=== PATIENT | female | born 1975 | race Caucasian/White ===

== ENCOUNTER 2025-08-18 09:29 | Observation (INO) ==
[2025-08-18 10:22] LABS: IMMATURE GRANULOCYTE # (AUTO) 0.0 (0.0-1.0); IMMATURE GRANULOCYTE % (AUTO) 0.3 % (0.0-5.0); RDW COEFFICIENT OF VARIATION 13.6 % (11.6-14.8)
[2025-08-18 10:35] LABS: CREATININE 0.92 mg/dL (0.60-1.30)
--- NOTE | 2025-08-18 10:38 | DI ---
EXAM: CHEST RADIOGRAPH TECHNIQUE: Single frontal chest radiograph. HISTORY: Chest pain and shortness of breath. COMPARISON: 03/09/2025 FINDINGS: Calcified granuloma of the left base, with calcified left hilar nodes, again noted. No pulmonary infiltrate is identified. No pleural effusion or pneumothorax is seen. Heart size is normal. Coronary artery stenting, again noted. No acute displaced rib fractures are identified. Old, healed fracture of the left 7th rib posteriorly, again noted. IMPRESSION: 1. No acute findings in the chest.
[2025-08-18 10:45] LABS: BLOOD ALCOHOL < 10.0 mg/dL (0.0-50.0)
[2025-08-18 10:46] LABS: LEUKOCYTE ESTERASE ,URINE Negative (NEGATIVE); URINE, BLOOD 1+ (NEGATIVE)
[2025-08-18 10:49] LABS: GLUCOSE, URINE (UA) 3+ (NEGATIVE)
[2025-08-18 11:09] LABS: CANNABINOID SCREEN,URINE POSITIVE (NEGATIVE); COCAIN SCREEN,URINE NEGATIVE (NEGATIVE)
[2025-08-18 11:10] LABS: AMPHETAMINE SCREEN,URINE NEGATIVE (NEGATIVE); METHADONE URINE SCREEN NEGATIVE (NEGATIVE); METHAMPHETAMINES SCREEN,URINE NEGATIVE (NEGATIVE); OXYCODONE URINE SCREEN NEGATIVE (NEGATIVE); TRICYCLIC ANTIDEPRESSANTS URIN NEGATIVE (NEGATIVE)
[2025-08-18] MEDS: COMPAZINE IVP STA (11:21)
[2025-08-18 11:22] LABS: VBG HCO3 29.8 (22-26); VBG OXYGEN SATURATION 53.5 (60-80); VBG PCO2 54.0 (40-50); VBG PH 7.35 (7.30-7.40); VBG PO2 30.0 (36-42)
[2025-08-18] MEDS: SODIUM CHLORIDE 1,000 ML IV ONE (11:22)
[2025-08-18] MEDS: BENADRYL IVP STA (11:22)
[2025-08-18] MEDS: HUMULIN R (10ML) IVP STA (11:23)
[2025-08-18] MEDS: CALCIUM CHLORIDE 10% IVP STA (11:23)
--- NOTE | 2025-08-18 11:46 | ED.PDOC ---
General [facility] ED Provider: Dr. KENDELL MATOS DO Chief Complaint: Nausea/Vomiting Stated Complaint: 50-year-old female presents to the ER reporting nausea vomiting and onset of diarrhea this morning. She also reports lower abdominal pain for the last 2 weeks. She reports that she has had trouble taking her medications to include hypertension medications, Plavix with history of CAD and stents, as well as diabetes requiring insulin therapy. She thinks that she has had a fever over the last couple weeks but not in the last 24 to 48 hours. Denies melena or hematochezia, dysuria or hematuria. Denies chest pain shortness of breath or cough. No known sick contacts. Time Seen by Provider: 08/18/25 09:30 Information Source: Patient Nursing and Triage Documentation Reviewed and Agree: Yes Opioid Naive vs. Tolerant What is Opioid Naive?: *Opioid Naive implies the patient is not already taking opioids or not chronically receiving opioids on a daily basis. *PRN dosing is not "usually" associated with tolerance. *Patients are at higher risk of over-sedation and aspiration. What is Opioid Tolerant?: *Opioid Tolerance implies less than the expected response to an opioid. *Acquired tolerance is defined by the patient taking 60mg of oral morphine daily (or equianalgesic dose of another opioid) for 1 week or more. *Often associated with chronic pain. *May take more than usual dose to achieve desired pain control. Review of Systems Review Of Systems Constitutional: Reports No symptoms All Other Systems: Reviewed and Negative [facility] Medical History (Updated 08/18/25 @ 21:28 by SABINO LEBRON) GERD (gastroesophageal reflux disease) K21.9 - Gastro-esophageal reflux disease without esophagitis (ICD-10) HTN (hypertension) I10 - Essential (primary) hypertension (ICD-10) CAD (coronary artery disease) I25.10 - Atherosclerotic heart disease of robinson coronary artery without angina pectoris (ICD-10) Diabetes E11.9 - Type 2 diabetes mellitus without complications (ICD-10) Surgical History (Updated 08/18/25 @ 21:28 by SABINO LEBRON) H/O heart artery stent Z95.5 - Presence of coronary angioplasty implant and graft (ICD-10) Physical Exam Physical Exam Appearance: Reports Ill-appearing, No pain distress and Well-nourished Ill-appearing: Mild Eyes: Reports JOSE ELIAS, EOMI and Conjunctiva clear ENT: Reports Nose normal and Oropharynx normal Neck: Supple Respiratory: Reports Airway patent, Breath sounds clear and Respirations nonlabored Cardiovascular: Reports RRR and Pulses normal GI/: Reports Soft, Nontender and Other (Negative Tinsley, McBurney, Rovsing, rebound or peritoneal signs) Musculoskeletal: Reports Normal strength and ROM intact Skin: Reports Warm, Dry and Normal color Neurological: Reports Sensation intact, Motor intact, Alert and Oriented Psychiatric: Reports Affect appropriate and Mood appropriate Interpretation EKG Interpretation EKG Interpretation By: ED Physician Time of EKG #1: 10:11 Rate: Normal (84) Rhythm: Sinus Ectopy: None [place]: NL ST Segment: Normal Interpretation: Q waves inferiorly, otherwise no acute ischemia Radiology Interpretation Radiology Interpretation By: Radiologist Radiology Results: No acute changes Exam Interpreted: Portable CXR Re-Evaluation Re-Evaluation Additional Comments: 50-year-old female presents to the ER reporting nausea vomiting and onset of diarrhea progressively worsening over the last 2 weeks. Subjective fever during that timeframe but not in the last 2 days. She is afebrile nontoxic doubt systemic infection such as sepsis. History of diabetes concern for DKA. She does have a subsequent blood sugar over 700 as well as potassium over 6. EKG does not demonstrate changes consistent with hyperkalemia, however given the level of increase, insulin, fluid bolus and calcium given. Given the glucose of over 700, D50 not given in this regard and insulin was given for both the hyperkalemia as well as hyperglycemia. Anion gap just over 20 but venous blood gas does not demonstrate acidosis. This would not technically be DKA although very close. This patient will likely require hospitalization. Will review viral swabs in addition to laboratory workup. No other signs of infection such as UTI, pneumonia, intra-abdominal or cutaneous etiologies. Will discussed with hospitalist service after reassessment after treatment Physician Progress Note Physician Progress Note: All EKGs and plain film imaging independently reviewed and interpreted by me unless stated otherwise. CTs interpreted by radiology unless otherwise stated. All pediatric patients are accompanied by parent or legal guardian as primary historian and/or validate patient report unless otherwise stated. Course Course 08/18/25 10:13 08/18/25 12:35 Orders, Labs, Meds: Lab Review 08/18/25 08/18/25 08/18/25 10:13 10:15 10:48 WBC 8.69 RBC 4.57 Hgb 13.1 Hct 41.3 MCV 90.4 MCH 28.7 MCHC 31.7 L RDW Coeff of Osvaldo 13.6 Plt Count 461 H Immature Gran % (Auto) 0.3 Neut % (Auto) 87.8 H Lymph % (Auto) 9.0 L Bucks % (Auto) 2.1 Eos % (Auto) 0.2 Baso % (Auto) 0.6 Neut # (Auto) 7.6 H Lymph # (Auto) 0.8 Bucks # (Auto) 0.2 L Eos # (Auto) 0.0 Baso # (Auto) 0.1 Immature Gran # (Auto) 0.0 VBG pH VBG pCO2 VBG pO2 VBG HCO3 VBG O2 Saturation Sodium 124.4 L Potassium 6.18 H* Chloride 85.4 L Carbon Dioxide 24.5 Anion Gap 20.68 BUN 24.7 H Creatinine 0.92 Estimated GFR (MDRD) 64.00 BUN/Creatinine Ratio 26.84 Glucose 732.6 H* Lactic Acid 1.37 Calcium 9.24 Magnesium 1.87 Total Bilirubin 0.66 AST 32.3 ALT 40.3 H Alkaline Phosphatase 200.4 H Troponin I < 0.012 Total Protein 7.91 Albumin 4.51 Globulin 3.40 Albumin/Globulin Ratio 1.32 Plasma/Serum Alcohol < 10.0 Acetone, Qual None Influ A Molecular Assay Influ B Molecular Assay RSV Antigen SARS CoV-2 RNA Rapid JAMIL 08/18/25 08/18/25 08/18/25 11:12 11:45 12:35 WBC RBC Hgb Hct MCV MCH MCHC RDW Coeff of Osvaldo Plt Count Immature Gran % (Auto) Neut % (Auto) Lymph % (Auto) Bucks % (Auto) Eos % (Auto) Baso % (Auto) Neut # (Auto) Lymph # (Auto) Bucks # (Auto) Eos # (Auto) Baso # (Auto) Immature Gran # (Auto) VBG pH 7.35 VBG pCO2 54 H VBG pO2 30 L VBG HCO3 29.8 H VBG O2 Saturation 53.5 L Sodium 127.1 L Potassium 4.09 D Chloride 90.8 L Carbon Dioxide 27.1 Anion Gap 13.29 BUN 23.4 H Creatinine 0.80 Estimated GFR (MDRD) 76.00 BUN/Creatinine Ratio 29.25 Glucose 492.7 H D Lactic Acid Calcium 9.92 Magnesium Total Bilirubin AST ALT Alkaline Phosphatase Troponin I Total Protein Albumin Globulin Albumin/Globulin Ratio Plasma/Serum Alcohol Acetone, Qual Influ A Molecular Assay Negative by naat Influ B Molecular Assay Negative by naat RSV Antigen Negative by naat SARS CoV-2 RNA Rapid JAMIL Negative Orders Category Date Time Status ADMIT OBSERVATION [PLACE PATIENT OBSERVATION] .TO ADMISSION 08/18/25 13:18 Active MEDSURG (MONITORED BED) EKG-(ED & IP/OBS ONLY) Stat CARDIO 08/18/25 10:05 Completed NPO REMINDER: IMAGING ONCE CARE 08/18/25 10:42 Completed TELEMETRY MONITORING TELE CARE 08/18/25 13:18 Active IV [ED IV/MEDIPORT/POWERPORT] .ONCE EMERGENCY 08/18/25 10:05 Active ACETONE, QUALITATIVE Stat LAB 08/18/25 10:48 Completed ALCOHOL LEVEL [BLOOD ALCOHOL] Stat LAB 08/18/25 10:15 Completed BMP [BASIC METABOLIC PANEL] Stat LAB 08/18/25 12:35 Completed CBC W/ AUTO DIFF Stat LAB 08/18/25 10:13 Completed CMP [COMPREHENSIVE METABOLIC PANEL] Stat LAB 08/18/25 10:15 Completed COVID [SARS COV-2 RNA RAPID JAMIL] Stat LAB 08/18/25 11:45 Completed DRUG SCREEN (RAPID FOR ED) [DRUG SCREEN, URINE, RAPID] LAB 08/18/25 Completed Stat FLU A & B MOLECULAR [FLU A/B MOLECULAR] Stat LAB 08/18/25 11:45 Completed LACTIC ACID Stat LAB 08/18/25 10:15 Completed MAGNESIUM Stat LAB 08/18/25 10:15 Completed RSV Stat LAB 08/18/25 11:45 Completed TROPONIN I Stat LAB 08/18/25 10:15 Completed URINALYSIS C & S IF INDICATED Stat LAB 08/18/25 Completed VENOUS BLOOD GAS Stat LAB 08/18/25 11:12 Completed 0.9 % Sodium Chloride [Saline Flush] Meds 08/18/25 10:05 Active 1 syr IVF PRN PRN Calcium Chloride Syringe [Calcium Chloride 10%] Meds 08/18/25 10:47 Discontinued 1,000 mg IVP ONCE STA Diphenhydramine Inj [Benadryl] Meds 08/18/25 10:05 Discontinued 25 mg IVP ONCE STA Insulin Regular, Human [Humulin R (10Ml)] Meds 08/18/25 10:46 Discontinued 10 unit IVP ONCE STA Iohexol [Omnipaque 350 mg/ml 100Ml] Meds 08/18/25 12:16 Discontinued 100 ml IVP ONCE ONE Prochlorperazine Edisylate [Compazine] Meds 08/18/25 10:05 Discontinued 10 mg IVP ONCE STA Sodium Chloride 0.9% [Sodium Chloride] 1,000 ml Meds 08/18/25 10:05 Discontinued IV BOLUS CHEST, 1V AP ONLY Stat RADS 08/18/25 10:[address] ABDOMEN/PELVIS W CONTRAST Stat RADS 08/18/25 10:42 Completed Medications Generic Name Dose Route Start Last Admin Trade Name Freq PRN Reason Stop Dose Admin Acetaminophen 650 mg 08/18/25 13:49 Acetaminophen 325 Mg Tablet PO Q4H PRN Mild Pain Aspirin 81 mg 08/19/25 09:00 Aspirin 81 Mg Tablet. PO DAILY [facility] Atorvastatin Calcium 40 mg 08/19/25 09:00 Atorvastatin Calcium 20 Mg Tablet PO DAILY [facility] Carvedilol 3.125 mg 08/18/25 21:00 08/18/25 21:41 Carvedilol 3.125 Mg Tablet PO 3.125 mg 2XD [facility] Administration Famotidine 20 mg 08/18/25 18:35 08/18/25 21:40 Famotidine 20 Mg Tablet PO 20 mg BIDAC2 [facility] Administration Ferrous Sulfate 324 mg 08/19/25 09:00 Ferrous Sulfate 324 Mg Tablet. PO DAILY [facility] Gabapentin 100 mg 08/18/25 21:00 08/18/25 21:40 Gabapentin 100 Mg Capsule PO 100 mg TID [facility] Administration Hydroxyzine HCl 25 mg 08/18/25 16:29 Hydroxyzine Hcl 25 Mg Tablet PO Q8H PRN Anxiety Sodium Chloride 1,000 mls @ 50 mls/hr 08/18/25 21:19 08/18/25 22:00 Sodium Chloride IV Not Given .Q20H [facility] Insulin Glargine 11 unit 08/19/25 09:00 Insulin Glargine,Hum.Rec.Anlog 100 Units/Ml SUBCUT QAM [facility] Insulin Glargine 7 unit 08/18/25 17:00 08/18/25 17:32 Insulin Glargine,Hum.Rec.Anlog 100 Units/Ml SUBCUT 7 unit QPM [facility] Administration Insulin Human Regular 0 unit 08/18/25 13:51 08/18/25 21:37 Insulin Regular, Human 100 Unit/Ml (10ml) Vial SUBCUT 10 unit PRN PRN Administration Hyperglycemia Protocol Losartan Potassium 12.5 mg 08/19/25 09:00 Losartan Potassium 25 Mg Tablet PO DAILY [facility] Metoclopramide HCl 5 mg 08/18/25 13:49 Metoclopramide Hcl 10 Mg/2 Ml IVP Q6H PRN Nausea / Vomiting Nitroglycerin 0.4 mg 08/18/25 16:29 Nitroglycerin 0.4 Mg Tab.Subl SL Q5MIN X 3 DOSES PRN Chest Pain Ondansetron HCl 4 mg 08/18/25 13:49 Ondansetron Hcl/Pf 4 Mg/2 Ml Sdv IVP Q6H PRN Nausea / Vomiting Paroxetine HCl 40 mg 08/19/25 09:00 Paroxetine Hcl 20 Mg Tablet PO DAILY [facility] Quetiapine Fumarate 50 mg 08/18/25 21:00 08/18/25 21:40 Quetiapine Fumarate 25 Mg Tablet PO 50 mg BEDTIME [facility] Administration Sodium Chloride 1 syr 08/18/25 10:05 0.9% Sodium Chloride 10 Ml Disp.Syrin IVF PRN PRN To flush IV Discontinued Medications Generic Name Dose Route Start Last Admin Trade Name Freq PRN Reason Stop Dose Admin Calcium Chloride 1,000 mg 08/18/25 10:47 08/18/25 11:23 Calcium Chloride 1000 Mg/10 Ml Syringe IVP 08/18/25 10:48 1,000 mg ONCE STA Administration Diphenhydramine HCl 25 mg 08/18/25 10:05 08/18/25 11:22 Diphenhydramine Inj 50 Mg/Ml Vial IVP 08/18/25 10:06 25 mg ONCE STA Administration Sodium Chloride 1,000 mls @ 1,000 mls/hr 08/18/25 10:05 08/18/25 22:01 Sodium Chloride IV 08/18/25 11:04 Infused BOLUS ONE Infusion Sodium Chloride 1,000 mls @ 125 mls/hr 08/18/25 14:00 08/18/25 15:09 Sodium Chloride IV 125 mls/hr .Q8H [facility] Administration Insulin Human Regular 10 unit 08/18/25 10:46 08/18/25 11:23 Insulin Regular, Human 100 Unit/Ml (10ml) Vial IVP 08/18/25 10:47 10 unit ONCE STA Administration Iohexol 100 ml 08/18/25 12:16 08/18/25 12:17 Iohexol 350 Mg/Ml 100ml IVP 08/18/25 12:17 100 ml ONCE ONE Administration Prochlorperazine Edisylate 10 mg 08/18/25 10:05 08/18/25 11:21 Prochlorperazine Edisylate 10 Mg/2 Ml Sdv IVP 08/18/25 10:06 10 mg ONCE STA Administration Vital Signs: Temp Pulse Resp BP Pulse Ox 08/18/25 09:57 97.4 F L 86 18 163/90 H 100 Discharge Plan Discharge Patient Disposition: PLACED OBSERVATION Discharge Problem: Acute hyperglycemia, Acute hyperkalemia, Intractable vomiting, Abdominal pain, Diabetes Did you review [place] [facility] TERRAPIN for ALL controlled substances?: Not Applicable ED Provider: KENDELL MATOS Condition: Stable
[2025-08-18 12:12] LABS: MOLECULAR FLU A NEGATIVE BY NAAT (NEGATIVE); MOLECULAR FLU B NEGATIVE BY NAAT (NEGATIVE); RSV MOLECULAR NEGATIVE BY NAAT (NEGATIVE); SARS COV-2 RNA RAPID NAAT NEGATIVE (NEGATIVE)
[2025-08-18] MEDS: OMNIPAQUE 350 MG/ML 100ML IVP ONE (12:17)
[2025-08-18 12:50] LABS: CREATININE 0.8 mg/dL (0.60-1.30)
--- NOTE | 2025-08-18 13:08 | CT ---
EXAM: CT ABDOMEN AND PELVIS HISTORY: Persistent lower abdominal pain and vomiting TECHNIQUE: CT abdomen and pelvis with intravenous contrast. Images were reconstructed using 5 mm section thickness. Reformations were prepared. COMPARISON: None FINDINGS: Liver is unremarkable. There is a gallstone within the gallbladder. The gallbladder is mildly distended without obvious inflammation. Common bile duct diameter is normal. The pancreas is normal other than a small 4.4 mm parenchymal cystic nodule mid body, axial image 28. Spleen and adrenal glands are within normal limits. There are multiple high density foci within the kidneys probably representing a combination of excreted intravenous contrast agent and vascular calcifications. Cannot exclude nephrolithiasis. No hydronephrosis is seen. Urinary bladder is mildly distended, otherwise unremarkable. Vascular calcifications of the aorta and iliac vessels are present. Unremarkable stomach. No definite appendix is seen. There is excess fecal retention in the transverse colon. The colon was otherwise unremarkable. The small bowel has diffuse mild fluid distension. The uterus is present. Trace pelvic ascites is noted. There is no free air. No abdominal wall hernia. Bones are within normal limits. Lung bases are free of acute infiltrate. - - - - - IMPRESSION: 1. There is a gallstone within the gallbladder. The gallbladder is mildly distended without obvious inflammation. Common bile duct diameter is normal. 2. The pancreas is normal other than a small 4.4 mm parenchymal cystic nodule mid body, axial image 28. This can be correlated with follow-up MRI. 3. There are multiple high density foci within the kidneys probably representing a combination of excreted intravenous contrast agent and vascular calcifications. Cannot exclude nephrolithiasis. No hydronephrosis is seen. Urinary bladder is mildly distended, otherwise unremarkable. 4. Unremarkable stomach. There is excess fecal retention in the transverse colon. The colon was otherwise unremarkable. The small bowel has diffuse mild fluid distension. This may represent a degree of mild enteritis or ileus. Trace pelvic ascites is noted. - - - - - All CT scans are performed using dose optimization techniques as appropriate to the performed exam and include at least one of the following: Automated exposure control, adjustment of the mA and/or kV according to size, and the use of iterative reconstruction technique.
[2025-08-18] MEDS ORDERED: REGLAN IVP PRN (13:49)
[2025-08-18] MEDS ORDERED: ZOFRAN SDV IVP PRN (13:49)
[2025-08-18] MEDS: SODIUM CHLORIDE 1,000 ML IV SCH ×2 (15:09→22:00)
[2025-08-18 15:42] VITALS: BMI 16.7
[2025-08-18] MEDS ORDERED: NITROSTAT SL PRN (16:29)
[2025-08-18] MEDS: HUMULIN R (10ML) SUBCUT PRN (17:31)
[2025-08-18] MEDS: LANTUS SUBCUT SCH (17:32)
--- NOTE | 2025-08-18 21:21 | PCM ---
Date of Service Date Seen by Provider: 08/18/25 Time Seen by Provider: 13:30 Admit Day/Time Admission Date: 08/18/25 Admission Time: 13:10 Reason for Admission Chief Complaint: HYPERCLYCEMIA,KYPERKALEMIA,INTRACTABLE VOMITING Hospital Provider Hospital Provider: SABINO LEBRON, [facility] History of Present Illness History of Present Illness: 50 yo female with pmh of T1DM, CAD, HTN, and GERD presented to the ER with 2 week duration of intermittent nausea, vomiting, and abdominal pain. Patient states they have been in the process of moving from the [facility] and feels this may be due to the stress. Has been unable to eat or drink much mostly the last 24-48 hours with diarrhea present as well. Initially blood sugars were running as low as 40s and then the last few days they have been 500s or higher. She ran out of her dexcom patches today and has not been able to appropriately monitor her sugar. She does not have a PCP at this time due to moving. Denies any fever, chills, chest pain, sob, or other symptoms. At this time, nausea has subsided and is hopeful to try something to eat soon. Blood glucose initially was >700, K of 6, PCO2 on venous ABG 54, pH normal, and anion gap was 20. Acetone negative. She was given 10 units of regular insulin and glucose improved to 400s. BMP rechecked and hyperkalemia resolved, but sodium remains in upper 120s. Anion gap down to 13. Admitted to Med/Surg Observation. Case Discussed With Case Discussed With: Patient's case was discussed with the ER Physicians, Dr. Dugan. [facility] Medical History (Updated 08/18/25 @ 21:28 by SABINO LEBRON) GERD (gastroesophageal reflux disease) K21.9 - Gastro-esophageal reflux disease without esophagitis (ICD-10) HTN (hypertension) I10 - Essential (primary) hypertension (ICD-10) CAD (coronary artery disease) I25.10 - Atherosclerotic heart disease of [place] coronary artery without angina pectoris (ICD-10) Diabetes E11.9 - Type 2 diabetes mellitus without complications (ICD-10) Surgical History (Updated 08/18/25 @ 21:28 by SABINO LEBRON) H/O heart artery stent Z95.5 - Presence of coronary angioplasty implant and graft (ICD-10) Allergies Allergies Allergy/AdvReac Type Severity Reaction Status Date / Time No Known Allergies Allergy Unverified 08/18/25 09:57 Current Medications Home Medications Acetaminophen (Acetaminophen 325 Mg Tablet) 650 mg PO Q4H PRN PRN Reason: Mild Pain Aspirin (Aspirin 81 Mg Tablet.) 81 mg PO DAILY [facility] Atorvastatin Calcium (Atorvastatin Calcium 20 Mg Tablet) 40 mg PO DAILY [facility] Carvedilol (Carvedilol 3.125 Mg Tablet) 3.125 mg PO 2XD [facility] Famotidine (Famotidine 20 Mg Tablet) 20 mg PO BIDAC2 [facility] Ferrous Sulfate (Ferrous Sulfate 324 Mg Tablet.) 324 mg PO DAILY [facility] Gabapentin (Gabapentin 100 Mg Capsule) 100 mg PO TID [facility] Hydroxyzine HCl (Hydroxyzine Hcl 25 Mg Tablet) 25 mg PO Q8H PRN PRN Reason: Anxiety Sodium Chloride (Sodium Chloride) 1,000 mls @ 50 mls/hr IV .Q20H [facility] Insulin Glargine (Insulin Glargine,Hum.Rec.Anlog 100 Units/Ml) 11 unit SUBCUT QAM [facility] Insulin Glargine (Insulin Glargine,Hum.Rec.Anlog 100 Units/Ml) 7 unit SUBCUT QPM [facility] Last Admin: 08/18/25 17:32 Dose: 7 unit Insulin Human Regular (Insulin Regular, Human 100 Unit/Ml (10ml) Vial) 0 unit SUBCUT PRN PRN; Protocol PRN Reason: Hyperglycemia Last Admin: 08/18/25 17:31 Dose: 12 unit Losartan Potassium (Losartan Potassium 25 Mg Tablet) 12.5 mg PO DAILY [facility] Metoclopramide HCl (Metoclopramide Hcl 10 Mg/2 Ml) 5 mg IVP Q6H PRN PRN Reason: Nausea / Vomiting Nitroglycerin (Nitroglycerin 0.4 Mg Tab.Subl) 0.4 mg SL Q5MIN X 3 DOSES PRN PRN Reason: Chest Pain Ondansetron HCl (Ondansetron Hcl/Pf 4 Mg/2 Ml Sdv) 4 mg IVP Q6H PRN PRN Reason: Nausea / Vomiting Paroxetine HCl (Paroxetine Hcl 20 Mg Tablet) 40 mg PO DAILY [facility] Quetiapine Fumarate (Quetiapine Fumarate 25 Mg Tablet) 50 mg PO BEDTIME [facility] Sodium Chloride (0.9% Sodium Chloride 10 Ml Disp.Syrin) 1 syr IVF PRN PRN PRN Reason: To flush IV aspirin 81 mg tablet 81 mg PO DAILY 03/09/25 [History Confirmed 08/18/25] atorvastatin 40 mg tablet 40 mg PO DAILY 03/09/25 [History Confirmed 08/18/25] famotidine 20 mg tablet (Acid Controller) 20 mg PO DAILY 03/09/25 [History Confirmed 08/18/25] ferrous sulfate 325 mg (65 mg iron) tablet (Feosol) 325 mg PO DAILY 03/09/25 [History Confirmed 08/18/25] gabapentin 100 mg capsule 100 mg PO TID 03/09/25 [History Confirmed 08/18/25] hydroxyzine HCl 25 mg tablet 25 mg PO Q8H PRN anxiety 03/09/25 [History Confirmed 08/18/25] insulin glargine 100 unit/mL (3 mL) subcutaneous pen (Lantus Solostar U-100 Insulin) 11 unit subcut QAM 03/09/25 [History Confirmed 08/18/25] insulin lispro 100 unit/mL subcutaneous pen (Humalog KwikPen (U-100) Insulin) 5 unit subcut [id number] 03/09/25 [History Confirmed 08/18/25] insulin lispro 100 unit/mL subcutaneous pen (Humalog KwikPen (U-100) Insulin) 7 unit subcut QACLUNCH 03/09/25 [History Confirmed 08/18/25] paroxetine HCl 40 mg tablet 40 mg PO DAILY 03/09/25 [History Confirmed 08/18/25] quetiapine 50 mg tablet 50 mg PO BEDTIME 03/09/25 [History Confirmed 08/18/25] carvedilol 3.125 mg tablet 3.125 mg PO 2XD 08/18/25 [History Confirmed 08/18/25] diclofenac sodium 1 % topical gel (Arthritis Pain (diclofenac)) 2 g topical .QID PRN 08/18/25 [History Confirmed 08/18/25] fluticasone propionate 50 mcg/actuation nasal spray,suspension (Flonase Allergy Relief) 2 spray intranasal DAILY PRN allergy symptoms 08/18/25 [History Confirmed 08/18/25] insulin glargine 100 unit/mL (3 mL) subcutaneous pen (Lantus Solostar U-100 Insulin) 7 unit subcut QPM 08/18/25 [History Confirmed 08/18/25] lidocaine 4 % topical patch (Lidocare) 1 patch topical .daily prn PRN pain 08/18/25 [History Confirmed 08/18/25] losartan 25 mg tablet 12.5 mg PO DAILY 08/18/25 [History Confirmed 08/18/25] nitroglycerin 0.4 mg sublingual tablet 0.4 mg sublingual Q5-15M PRN chest pain 08/18/25 [History Confirmed 08/18/25] Opioid Naive vs. Tolerant Does Patient Take Opioids?: No Is Patient Opioid Naive?: Yes What is Opioid Naive?: *Opioid Naive implies the patient is not already taking opioids or not chronically receiving opioids on a daily basis. *PRN dosing is not "usually" associated with tolerance. *Patients are at higher risk of over-sedation and aspiration. Is Patient Opioid Tolerant?: No What is Opioid Tolerant?: *Opioid Tolerance implies less than the expected response to an opioid. *Acquired tolerance is defined by the patient taking 60mg of oral morphine daily (or equianalgesic dose of another opioid) for 1 week or more. *Often associated with chronic pain. *May take more than usual dose to achieve desired pain control. Review of Systems Constitutional: Reports Chills, Weakness and Sweats Head: Reports Normocephalic Eyes: Reports No symptoms Ears: Reports No symptoms Nose: Reports No symptoms Mouth: Reports No symptoms Throat: Reports No symptoms Cardiovascular: Reports No symptoms Respiratory: Reports No symptoms Gastrointestinal: Reports Nausea, Vomiting and Diarrhea Genitourinary: Reports No Symptoms Musculoskeletal: Reports No symptoms Endocrine: Reports No symptoms Hematology: Reports No symptoms Immunology: Reports No symptoms Neurological: Reports No symptoms Psychiatric: Reports No symptoms Physical examination Most Recent Vital Signs: Most Recent Vital Signs Temperature 97.9 F 08/18/25 18:00 Temperature Source Temporal Artery Scan 08/18/25 18:00 Temperature Source Temporal Artery Scan 08/18/25 09:57 Pulse Rate 117 H 08/18/25 18:00 Respiratory Rate 24 H 08/18/25 18:00 Blood Pressure 101/56 L 08/18/25 18:00 Blood Pressure Mean 71 08/18/25 18:00 Blood Pressure Left Arm 140/71 08/18/25 14:40 Blood Pressure Location Right Arm 08/18/25 18:00 Blood Pressure Position Supine 08/18/25 14:40 O2 Sat by Pulse Oximetry 97 08/18/25 18:00 Oxygen Delivery Method Room Air 08/18/25 21:00 Height 5 ft 4 in 08/18/25 14:40 Weight 44.4 kg 08/18/25 14:40 Telemetry Type Remote Telemetry 08/18/25 19:00 Telemetry Monitoring Continues 08/18/25 19:00 Telemetry Heart Rate 99 08/18/25 19:00 EKG DE Interval 0.15 08/18/25 19:00 EKG QRS Interval 0.06 08/18/25 19:00 Telemetry Strip Reading nsr [email or web address] rn 08/18/25 19:00 Appearance: Positive No Apparent Distress, Alert and Oriented x3, Ill-Appearing and Thin Skin: Positive Warm and Good Turgor HEENT: Positive Normocephalic and PERRLA Neck: Positive Supple and Midline Trachea Chest/Lungs: Positive Symmetrical With Equal Breath Sounds, Clear to Ausc ultation Bilaterally and Good Air Movement all 4 Lung [place] Heart: Positive RRR and Pulses Normal GI/: Positive Soft, Nontender, Bowel Sounds Normal and No Distention Musculoskeletal: Positive Not Examined Extremities: Positive Intact Peripheral Pulses, Stable Joints Without Laxity and Good ROM in All Joints Neurological: Positive Sensation Intact, Motor intact, Reflexes Intact, Alert, Oriented and Muscle Strength 5/5 in Upper and Lower Extremities Bilaterally Labs This Visit Labs This Visit: Labs This Visit 08/18/25 08/18/25 08/18/25 10:13 10:15 10:48 WBC 8.69 RBC 4.57 Hgb 13.1 Hct 41.3 MCV 90.4 MCH 28.7 MCHC 31.7 L RDW Coeff of [place] 13.6 Plt Count 461 H Immature Gran % (Auto) 0.3 Neut % (Auto) 87.8 H Lymph % (Auto) 9.0 L [place] % (Auto) 2.1 Eos % (Auto) 0.2 Baso % (Auto) 0.6 Neut # (Auto) 7.6 H Lymph # (Auto) 0.8 [place] # (Auto) 0.2 L Eos # (Auto) 0.0 Baso # (Auto) 0.1 Immature Gran # (Auto) 0.0 VBG pH VBG pCO2 VBG pO2 VBG HCO3 VBG O2 Saturation Sodium 124.4 L Potassium 6.18 H* Chloride 85.4 L Carbon Dioxide 24.5 Anion Gap 20.68 BUN 24.7 H Creatinine 0.92 Estimated GFR (MDRD) 64.00 BUN/Creatinine Ratio 26.84 Glucose 732.6 H* Lactic Acid 1.37 Calcium 9.24 Magnesium 1.87 Total Bilirubin 0.66 AST 32.3 ALT 40.3 H Alkaline Phosphatase 200.4 H Troponin I < 0.012 Total Protein 7.91 Albumin 4.51 Globulin 3.40 Albumin/Globulin Ratio 1.32 Urine Color Urine Clarity Urine pH Ur Specific [place] Urine Protein Urine Glucose (UA) Urine Ketones Urine Blood Urine Nitrite Urine Bilirubin Urine Urobilinogen Ur Leukocyte Esterase Urine Microscopic RBC Ur Squamous Epith Cells Urine Bacteria Urine Opiates Screen Ur Oxycodone Screen Urine Methadone Screen Ur Barbiturates Screen U Tricyclic Antidepress Ur Phencyclidine Scrn Ur Amphetamine Screen U Methamphetamines Scrn U Benzodiazepines Scrn Urine Cocaine Screen U Cannabinoids Screen Plasma/Serum Alcohol < 10.0 Acetone, Qual None Influ A Molecular Assay Influ B Molecular Assay RSV Antigen SARS CoV-2 RNA Rapid JAMIL 08/18/25 08/18/25 08/18/25 11:12 11:45 12:35 WBC RBC Hgb Hct MCV MCH MCHC RDW Coeff of [place] Plt Count Immature Gran % (Auto) Neut % (Auto) Lymph % (Auto) [place] % (Auto) Eos % (Auto) Baso % (Auto) Neut # (Auto) Lymph # (Auto) [place] # (Auto) Eos # (Auto) Baso # (Auto) Immature Gran # (Auto) VBG pH 7.35 VBG pCO2 54 H VBG pO2 30 L VBG HCO3 29.8 H VBG O2 Saturation 53.5 L Sodium 127.1 L Potassium 4.09 D Chloride 90.8 L Carbon Dioxide 27.1 Anion Gap 13.29 BUN 23.4 H Creatinine 0.80 Estimated GFR (MDRD) 76.00 BUN/Creatinine Ratio 29.25 Glucose 492.7 H D Lactic Acid Calcium 9.92 Magnesium Total Bilirubin AST ALT Alkaline Phosphatase Troponin I Total Protein Albumin Globulin Albumin/Globulin Ratio Urine Color Urine Clarity Urine pH Ur Specific [place] Urine Protein Urine Glucose (UA) Urine Ketones Urine Blood Urine Nitrite Urine Bilirubin Urine Urobilinogen Ur Leukocyte Esterase Urine Microscopic RBC Ur Squamous Epith Cells Urine Bacteria Urine Opiates Screen Ur Oxycodone Screen Urine Methadone Screen Ur Barbiturates Screen U Tricyclic Antidepress Ur Phencyclidine Scrn Ur Amphetamine Screen U Methamphetamines Scrn U Benzodiazepines Scrn Urine Cocaine Screen U Cannabinoids Screen Plasma/Serum Alcohol Acetone, Qual Influ A Molecular Assay Negative by naat Influ B Molecular Assay Negative by naat RSV Antigen Negative by naat SARS CoV-2 RNA Rapid JAMIL Negative 08/18/25 Unknown WBC RBC Hgb Hct MCV MCH MCHC RDW Coeff of [place] Plt Count Immature Gran % (Auto) Neut % (Auto) Lymph % (Auto) [place] % (Auto) Eos % (Auto) Baso % (Auto) Neut # (Auto) Lymph # (Auto) [place] # (Auto) Eos # (Auto) Baso # (Auto) Immature Gran # (Auto) VBG pH VBG pCO2 VBG pO2 VBG HCO3 VBG O2 Saturation Sodium Potassium Chloride Carbon Dioxide Anion Gap BUN Creatinine Estimated GFR (MDRD) BUN/Creatinine Ratio Glucose Lactic Acid Calcium Magnesium Total Bilirubin AST ALT Alkaline Phosphatase Troponin I Total Protein Albumin Globulin Albumin/Globulin Ratio Urine Color Light Urine Clarity Clear Urine pH 5.5 Ur Specific [place] 1.010 Urine Protein Negative Urine Glucose (UA) 3+ H Urine Ketones 3+ H Urine Blood 1+ H Urine Nitrite Negative Urine Bilirubin Negative Urine Urobilinogen 0.2 Ur Leukocyte Esterase Negative Urine Microscopic RBC 10-20 Ur Squamous Epith Cells 5-10 Urine Bacteria Trace Urine Opiates Screen Negative Ur Oxycodone Screen Negative Urine Methadone Screen Negative Ur Barbiturates Screen Negative U Tricyclic Antidepress Negative Ur Phencyclidine Scrn Negative Ur Amphetamine Screen Negative U Methamphetamines Scrn Negative U Benzodiazepines Scrn Negative Urine Cocaine Screen Negative U Cannabinoids Screen Positive H Plasma/Serum Alcohol Acetone, Qual Influ A Molecular Assay Influ B Molecular Assay RSV Antigen SARS CoV-2 RNA Rapid JAMIL Imaging Imaging: EXAM: CHEST RADIOGRAPH TECHNIQUE: Single frontal chest radiograph. HISTORY: Chest pain and shortness of breath. COMPARISON: 03/09/2025 FINDINGS: Calcified granuloma of the left base, with calcified left hilar nodes, again noted. No pulmonary infiltrate is identified. No pleural effusion or pneumothorax is seen. Heart size is normal. Coronary artery stenting, again noted. No acute displaced rib fractures are identified. Old, healed fracture of the left 7th rib posteriorly, again noted. IMPRESSION: 1. No acute findings in the chest. EXAM: CT ABDOMEN AND PELVIS HISTORY: Persistent lower abdominal pain and vomiting TECHNIQUE: CT abdomen and pelvis with intravenous contrast. Images were reconstructed using 5 mm section thickness. Reformations were prepared. COMPARISON: None FINDINGS: Liver is unremarkable. There is a gallstone within the gallbladder. The gallbladder is mildly distended without obvious inflammation. Common bile duct diameter is normal. The pancreas is normal other than a small 4.4 mm parenchymal cystic nodule mid body, axial image 28. Spleen and adrenal glands are within normal limits. There are multiple high density foci within the kidneys probably representing a combination of excreted intravenous contrast agent and vascular calcifications. Cannot exclude nephrolithiasis. No hydronephrosis is seen. Urinary bladder is mildly distended, otherwise unremarkable. Vascular calcifications of the aorta and iliac vessels are present. Unremarkable stomach. No definite appendix is seen. There is excess fecal retention in the transverse colon. The colon was otherwise unremarkable. The small bowel has diffuse mild fluid distension. The uterus is present. Trace pelvic ascites is noted. There is no free air. No abdominal wall hernia. Bones are within normal limits. Lung bases are free of acute infiltrate. - - - - - IMPRESSION: 1. There is a gallstone within the gallbladder. The gallbladder is mildly distended without obvious inflammation. Common bile duct diameter is normal. 2. The pancreas is normal other than a small 4.4 mm parenchymal cystic nodule mid body, axial image 28. This can be correlated with follow-up MRI. 3. There are multiple high density foci within the kidneys probably representing a combination of excreted intravenous contrast agent and vascular calcifications. Cannot exclude nephrolithiasis. No hydronephrosis is seen. Urinary bladder is mildly distended, otherwise unremarkable. 4. Unremarkable stomach. There is excess fecal retention in the transverse colon. The colon was otherwise unremarkable. The small bowel has diffuse mild fluid distension. This may represent a degree of mild enteritis or ileus. Trace pelvic ascites is noted. Review Statement Review Statement: I have independently reviewed and interpreted the labs/EKGs/imaging that were ordered by the ER provider. I have reviewed all outside records that are available currently in our EMR including imaging/notes/labs from previous visits. Plan Plan: 1. Acute enteritis - denies any recent antibiotic use; zofran and reglan Q6H prn, pepcid bid, advance diet as tolerated 2. Uncontrolled T1DM - checking A1C, resume home lantus, accuchecks qid with moderate ssi 3. Hyponatremia - mild, due to enteritis, NS initially started at 125mL/hr, decreased to 50mL/hr due to CAD and stent history to avoid overload 4. HTN - chronic, continue home medications 5. CAD - continue home medications DVT Prophylaxis: Ambulation Time Spent: Greater than 80 minutes spent with patient, 50% of the time spent with this patient was devoted to counseling and coordination of care. [facility] minutes spent discussing advance care planning. Disposition: Will need PCP upon discharge Admit to: Med/Surg Observation Full Code Discussed Plan of Care with Dr. Kennedy Loaiza. Medications Medication Orders: Medications Ordered Category Date Time Status 0.9 % Sodium Chloride [Saline Flush] Meds 08/18/25 10:05 Active 1 syr IVF PRN PRN Acetaminophen [Tylenol] Meds 08/18/25 13:49 Active 650 mg PO Q4H PRN Aspirin [Aspirin EC] Meds 08/19/25 09:00 Active 81 mg PO DAILY Atorvastatin Calcium [Lipitor] Meds 08/19/25 09:00 Active 40 mg PO DAILY Carvedilol [Coreg] Meds 08/18/25 21:00 Active 3.125 mg PO 2XD Famotidine [Pepcid] Meds 08/18/25 18:35 Active 20 mg PO BIDAC2 Ferrous Sulfate Meds 08/19/25 09:00 Active 324 mg PO DAILY Gabapentin [Neurontin] Meds 08/18/25 21:00 Active 100 mg PO TID Hydroxyzine HCl [Atarax] Meds 08/18/25 16:29 Active 25 mg PO Q8H PRN ANX Anxiety Insulin Glargine,Hum.rec.anlog [Lantus] Meds 08/19/25 09:00 Active 11 unit SUBCUT QAM Insulin Glargine,Hum.rec.anlog [Lantus] Meds 08/18/25 17:00 Active 7 unit SUBCUT QPM Insulin Regular, Human [Humulin R (10Ml)] Meds 08/18/25 13:51 Active See Protocol SUBCUT PRN PRN Losartan Potassium [Cozaar] Meds 08/19/25 09:00 Active 12.5 mg PO DAILY Metoclopramide HCl [Reglan] Meds 08/18/25 13:49 Active 5 mg IVP Q6H PRN Nitroglycerin [Nitrostat] Meds 08/18/25 16:29 Active 0.4 mg SL Q5MIN X 3 DOSES PRN CHEST Chest Pain Ondansetron HCl/Pf [Zofran Sdv] Meds 08/18/25 13:49 Active 4 mg IVP Q6H PRN Paroxetine HCl [Paxil] Meds 08/19/25 09:00 Active 40 mg PO DAILY Quetiapine Fumarate [Seroquel] Meds 08/18/25 21:00 Active 50 mg PO BEDTIME Sodium Chloride 0.9% [Sodium Chloride] 1,000 ml Meds 08/18/25 21:19 Ordered IV 50 mls/hr
[2025-08-18] MEDS: PEPCID PO SCH (21:40)
[2025-08-18] MEDS: NEURONTIN PO SCH (21:40)
[2025-08-18] MEDS: SEROQUEL PO SCH (21:40)
[2025-08-18] MEDS: COREG PO SCH (21:41)
[2025-08-19 05:36] LABS: IMMATURE GRANULOCYTE # (AUTO) 0.0 (0.0-1.0); IMMATURE GRANULOCYTE % (AUTO) 0.4 % (0.0-5.0); RDW COEFFICIENT OF VARIATION 13.9 % (11.6-14.8)
[2025-08-19 05:43] LABS: CREATININE 0.81 mg/dL (0.60-1.30)
[2025-08-19] MEDS: ATARAX PO PRN (07:54)
[2025-08-19] MEDS ORDERED: PEPCID PO SCH (09:00)
[2025-08-19] MEDS: LIPITOR PO SCH (09:48)
[2025-08-19] MEDS: PAXIL PO SCH (09:49)
[2025-08-19] MEDS: FERROUS SULFATE PO SCH (09:50)
[2025-08-19] MEDS: ASPIRIN EC PO SCH (09:50)
[2025-08-19] MEDS: COZAAR PO SCH (09:51)
[2025-08-19] MEDS: LANTUS SUBCUT SCH (09:52)
[2025-08-19 10:40] VITALS: BP 114/68; PULSE 85; TEMP 97.9
[2025-08-19] MEDS: TYLENOL PO PRN (11:53)
[2025-08-19 12:10] LABS: CREATININE 0.77 mg/dL (0.60-1.30)
--- NOTE | 2025-08-19 12:23 | DCSUM ---
Admission Date Admission Date: 08/18/25 Discharge Date Discharge Date: 08/19/25 Admission Diagnosis Admission Diagnosis: 1. Acute enteritis 2. Uncontrolled T1DM 3. Hyponatremian Discharge Diagnosis Discharge Diagnosis: 1. Acute enteritis - Improved 2. Uncontrolled T1DM - Sugars better controlled since admission, restart home regimen 3. Hyponatremia - appears chronic per previous labs 4. HTN - chronic, stable 5. CAD - chronic, stable Hospital Provider Hospital [facility] Summary of History and Physical Summary of History and Physical: 50 yo female with pmh of T1DM, CAD, HTN, and GERD presented to the ER with 2 week duration of intermittent nausea, vomiting, and abdominal pain. Patient states they have been in the process of moving from the [place] area and feels this may be due to the stress. Has been unable to eat or drink much mostly the last 24-48 hours with diarrhea present as well. Initially blood sugars were running as low as 40s and then the last few days they have been 500s or higher. She ran out of her dexcom patches today and has not been able to appropriately monitor her sugar. She does not have a PCP at this time due to moving. Denies any fever, chills, chest pain, sob, or other symptoms. At this time, nausea has subsided and is hopeful to try something to eat soon. Blood glucose initially was >700, K of 6, PCO2 on venous ABG 54, pH normal, and anion gap was 20. Acetone negative. She was given 10 units of regular insulin and glucose improved to 400s. BMP rechecked and hyperkalemia resolved, but sodium remains in upper 120s. Anion gap down to 13. Admitted to Med/Surg Observation. Hospital Course Subjective: During stay, patient did not require any further anti-emetics. Tolerated bland diet well. Blood sugar normalized and has been covered with sliding scale insulin. A1c found to be 9.45. Potassium was over 5 this am and NS was continued at 50mL/hr Repeat check at noon showed a K of 4.7. Sodium 130 but per previous labs this appears to be patient's baseline. Rx sent for zofran prn. Follow-up with pcp. Appearance: Pleasant, No Apparent Distress and Alert HEENT: MMM, Supple and No JVD CVS: No Murmur Abdomen: Soft, Non-Tender and No Distention Respiratory: No Dyspnea Extremities: No Edema Vital Signs: Most Recent Vital Signs Temperature 97.9 F 08/19/25 10:00 Temperature Source Temporal Artery Scan 08/19/25 10:00 Temperature Source Temporal Artery Scan 08/18/25 09:57 Pulse Rate 85 08/19/25 10:00 Respiratory Rate 16 08/19/25 05:37 Blood Pressure 114/68 08/19/25 10:00 Blood Pressure Mean 83 08/19/25 10:00 Blood Pressure Left Arm 140/71 08/18/25 14:40 Blood Pressure Location Left Arm 08/19/25 10:00 Blood Pressure Position Supine 08/19/25 10:00 O2 Sat by Pulse Oximetry 97 08/19/25 10:00 Oxygen Delivery Method Room Air 08/19/25 11:00 Oxygen Flow Rate 98 08/19/25 10:00 Height 5 ft 4 in 08/19/25 09:55 Weight 44.4 kg 08/19/25 09:55 Telemetry Type Remote Telemetry 08/19/25 07:00 Telemetry Monitoring Discontinued 08/19/25 07:00 Telemetry Heart Rate 90 08/19/25 07:00 EKG FL Interval 0.15 08/19/25 07:00 EKG QRS Interval 0.07 08/19/25 07:00 Telemetry Strip Reading NSR 08/19/25 07:00 Imaging: EXAM: CHEST RADIOGRAPH TECHNIQUE: Single frontal chest radiograph. HISTORY: Chest pain and shortness of breath. COMPARISON: 03/09/2025 FINDINGS: Calcified granuloma of the left base, with calcified left hilar nodes, again noted. No pulmonary infiltrate is identified. No pleural effusion or pneumothorax is seen. Heart size is normal. Coronary artery stenting, again noted. No acute displaced rib fractures are identified. Old, healed fracture of the left 7th rib posteriorly, again noted. IMPRESSION: 1. No acute findings in the chest. EXAM: CT ABDOMEN AND PELVIS HISTORY: Persistent lower abdominal pain and vomiting TECHNIQUE: CT abdomen and pelvis with intravenous contrast. Images were reconstructed using 5 mm section thickness. Reformations were prepared. COMPARISON: None FINDINGS: Liver is unremarkable. There is a gallstone within the gallbladder. The gallbladder is mildly distended without obvious inflammation. Common bile duct diameter is normal. The pancreas is normal other than a small 4.4 mm parenchymal cystic nodule mid body, axial image 28. Spleen and adrenal glands are within normal limits. There are multiple high density foci within the kidneys probably representing a combination of excreted intravenous contrast agent and vascular calcifications. Cannot exclude nephrolithiasis. No hydron ephrosis is seen. Urinary bladder is mildly distended, otherwise unremarkable. Vascular calcifications of the aorta and iliac vessels are present. Unremarkable stomach. No definite appendix is seen. There is excess fecal retention in the transverse colon. The colon was otherwise unremarkable. The small bowel has diffuse mild fluid distension. The uterus is present. Trace pelvic ascites is noted. There is no free air. No abdominal wall hernia. Bones are within normal limits. Lung bases are free of acute infiltrate. - - - - - IMPRESSION: 1. There is a gallstone within the gallbladder. The gallbladder is mildly distended without obvious inflammation. Common bile duct diameter is normal. 2. The pancreas is normal other than a small 4.4 mm parenchymal cystic nodule mid body, axial image 28. This can be correlated with follow-up MRI. 3. There are multiple high density foci within the kidneys probably representing a combination of excreted intravenous contrast agent and vascular calcifications. Cannot exclude nephrolithiasis. No hydronephrosis is seen. Urinary bladder is mildly distended, otherwise unremarkable. 4. Unremarkable stomach. There is excess fecal retention in the transverse colon. The colon was otherwise unremarkable. The small bowel has diffuse mild fluid distension. This may represent a degree of mild enteritis or ileus. Trace pelvic ascites is noted. Lab Results Last 24 Hours: 08/19/25 08/19/25 08/18/25 11:50 04:54 12:35 WBC 9.08 RBC 4.09 L Hgb 11.9 L Hct 36.5 L MCV 89.2 MCH 29.1 MCHC 32.6 RDW Coeff of Osvaldo 13.9 Plt Count 410 Immature Gran % (Auto) 0.4 Neut % (Auto) 77.7 H Lymph % (Auto) 15.1 [place] % (Auto) 5.2 Eos % (Auto) 0.9 Baso % (Auto) 0.7 Neut # (Auto) 7.1 H Lymph # (Auto) 1.4 [place] # (Auto) 0.5 Eos # (Auto) 0.1 Baso # (Auto) 0.1 Immature Gran # (Auto) 0.0 Sodium 130.3 L 132.7 L 127.1 L Potassium 4.77 5.12 H 4.09 D Chloride 98.0 98.3 90.8 L Carbon Dioxide 28.0 30.2 H 27.1 Anion Gap 9.07 9.32 13.29 BUN 16.0 16.6 23.4 H Creatinine 0.77 0.81 0.80 Estimated GFR (MDRD) 79.00 75.00 76.00 BUN/Creatinine Ratio 20.77 20.49 29.25 Glucose 346.9 H D 137.3 H D 492.7 H D Hemoglobin A1c 9.45 H Calcium 8.87 9.32 9.92 Total Bilirubin 0.30 AST 28.3 ALT 28.4 Alkaline Phosphatase 86.7 D Total Protein 6.43 Albumin 3.49 L Globulin 2.94 Albumin/Globulin Ratio 1.18 Discharge Instructions Discharge Planning: Discharge Planning > 40 minutes If patient is discharged with left ventricular systolic dysfunction: na Discharged with a beta arely? [] If no, why not? [] Discharged with an janeth/arb? [] If no, why not? [] Discharge Medications: Medications at Discharge (Home Meds & RX) aspirin 81 mg tablet 81 mg PO DAILY 03/09/25 atorvastatin 40 mg tablet 40 mg PO DAILY 03/09/25 famotidine 20 mg tablet (Acid Controller) 20 mg PO DAILY 03/09/25 ferrous sulfate 325 mg (65 mg iron) tablet (Feosol) 325 mg PO DAILY 03/09/25 gabapentin 100 mg capsule 100 mg PO TID 03/09/25 hydroxyzine HCl 25 mg tablet 25 mg PO Q8H PRN anxiety 03/09/25 insulin glargine 100 unit/mL (3 mL) subcutaneous pen (Lantus Solostar U-100 Insulin) 11 unit subcut QAM 03/09/25 insulin lispro 100 unit/mL subcutaneous pen (Humalog KwikPen (U-100) Insulin) 5 unit subcut [id number] 03/09/25 insulin lispro 100 unit/mL subcutaneous pen (Humalog KwikPen (U-100) Insulin) 7 unit subcut QACLUNCH 03/09/25 paroxetine HCl 40 mg tablet 40 mg PO DAILY 03/09/25 quetiapine 50 mg tablet 50 mg PO BEDTIME 03/09/25 carvedilol 3.125 mg tablet 3.125 mg PO 2XD 08/18/25 fluticasone propionate 50 mcg/actuation nasal spray,suspension (Flonase Allergy Relief) 2 spray intranasal DAILY PRN allergy symptoms 08/18/25 insulin glargine 100 unit/mL (3 mL) subcutaneous pen (Lantus Solostar U-100 Insulin) 7 unit subcut QPM 08/18/25 lidocaine 4 % topical patch (Lidocare) 1 patch topical .daily prn PRN pain 08/18/25 losartan 25 mg tablet 12.5 mg PO DAILY 08/18/25 nitroglycerin 0.4 mg sublingual tablet 0.4 mg sublingual Q5-15M PRN chest pain 08/18/25 ondansetron 4 mg disintegrating tablet 4 mg PO Q6H PRN nausea and vomiting #20 tabs 08/19/25 Discharge Plan Discharge Discharge Orders: Discharge Patient (ONCE); Ordered 08/19/25 Ordered By: SARA SCHNEIDER Activity Restrictions/Additional Instructions: Diagnosis: Enteritis, Hyperglycemia, Hyperkalemia Diet: [place], diabetic, advance as tolerated Activity as tolerated. Medications: [employer] * Zofran 4 mg every 6 hours as needed for nausea Follow-up with primary care provider. Instructions: Ondansetron (By mouth), Enteritis (GEN) Patient Disposition: HOME SELF-CARE Prescriptions: New ondansetron 4 mg tablet,disintegrating 4 mg PO Q6H PRN (Reason: nausea and vomiting) Qty: 20 0RF Continued atorvastatin 40 mg tablet 40 mg PO DAILY hydroxyzine HCl 25 mg tablet 25 mg PO Q8H PRN (Reason: anxiety) ferrous sulfate [Feosol] 325 mg (65 mg iron) tablet 325 mg PO DAILY paroxetine HCl 40 mg tablet 40 mg PO DAILY quetiapine 50 mg tablet 50 mg PO BEDTIME famotidine [Acid Controller] 20 mg tablet 20 mg PO DAILY insulin glargine [Lantus Solostar U-100 Insulin] 100 unit/mL (3 mL) insulin pen 11 unit subcut QAM gabapentin 100 mg capsule 100 mg PO TID insulin lispro [Humalog KwikPen Insulin] 100 unit/mL insulin pen 5 unit subcut [id number] Patient Comments: "I take 5 units only if I am eating. I do not use it if I don't" insulin lispro [Humalog KwikPen Insulin] 100 unit/mL insulin pen 7 unit subcut QACLUNCH aspirin 81 mg tablet 81 mg PO DAILY losartan 25 mg tablet 12.5 mg PO DAILY nitroglycerin 0.4 mg tablet, sublingual 0.4 mg sublingual Q5-15M PRN (Reason: chest pain) Rx Instructions: do not exceed 3 doses per episode carvedilol 3.125 mg tablet 3.125 mg PO 2XD insulin glargine [Lantus Solostar U-100 Insulin] 100 unit/mL (3 mL) insulin pen 7 unit subcut QPM lidocaine [Lidocare] 4 % adhesive patch,medicated 1 patch topical .daily prn PRN (Reason: pain) fluticasone propionate [Flonase Allergy Relief] 50 mcg/actuation spray,suspension 2 spray intranasal DAILY PRN (Reason: allergy symptoms) Rx Instructions: administer into each nostril Discontinued diclofenac sodium [Arthritis Pain (diclofenac)] 1 % gel 2 g topical .QID PRN Rx Instructions: apply to single elbow, wrist or hand; for hand includes palm/fingers/back of hand Did you review [place] [employer] for ALL controlled substances?: No Discussed opioids are addictive and Narcan is available by prescription or from pharmacy.: No Condition: Stable Referrals: IWONA PATE APRN [NURSE PRACTITIONER, CARDIOLOGY] - 5-7 Days Referral Note: referral has been sent with your completed intake paperwork, they will be in contact with you once it has been reviewed.
[2025-08-19] MEDS ORDERED: HUMULIN R (10ML) SUBCUT PRN (12:35)
[2025-08-19 14:21] VITALS: RESP 18
== END 2025-08-19 13:30 | disposition home or self-care (01) ==
LOC: ED 09:29 → MEDSURG B 09:29
PROVIDERS: ADMIT Hospitalist; ATTEND Nurse Practitioner Family
DX: Z79.4 Long term (current) use of insulin; K52.9 Noninfective gastroenteritis and colitis, unspecified; Z79.899 Other long term (current) drug therapy; Z20.822 Contact with and (suspected) exposure to COVID-19; I10 Essential (primary) hypertension; I25.10 Atherosclerotic heart disease of native coronary artery without angina pectoris; E87.5 Hyperkalemia; E87.1 Hypo-osmolality and hyponatremia; Z51.81 Encounter for therapeutic drug level monitoring; E10.65 Type 1 diabetes mellitus with hyperglycemia